=== PATIENT | male | born 1990 | race Caucasian/White ===

== ENCOUNTER 2023-03-20 10:38 | Emergency (ER) | payer MEDICAID ==
[~2023-03-20] VITALS: Ht 162.6 cm; Wt 65.0 kg
[2023-03-20 11:00] VITALS: O2SAT 100
[2023-03-20] MEDS ORDERED: IBUPROFEN 600MG TABLET PO STA (12:35)
[2023-03-20] MEDS ORDERED: MULT-1116 MT (15:20)
[2023-03-20 16:10] VITALS: BP 122/67; PULSE 78; RESP 18; TEMP 98.7
== END 2023-03-20 16:11 | disposition home or self-care (01) ==
LOC: ER 12:29
DX: H53.8 Other visual disturbances (principal); R51.9 Headache, unspecified
CPT/HCPCS: 99284